=== PATIENT | female | born 1955 | race Caucasian/White ===

== ENCOUNTER 2016-12-24 08:24 | Day surgery (SDC) | payer OTHER ==
[2016-12-19 13:04] VITALS: BMI 25.0
[2016-12-24] MEDS ORDERED: PROPOFOL 20 ML ONE ×3 (10:12)
[2016-12-24] MEDS ORDERED: SUCCINYLCHOLINE CHLORIDE 200 MG/10 ML VIAL ONE (10:13)
[2016-12-24] MEDS ORDERED: ePHEDrine SULFATE 50 MG/1 ML AMPULE ONE (10:13)
[2016-12-24] MEDS ORDERED: MIDAZOLAM HCL 2 MG/2 ML SINGLE DOSE VIAL ONE ×3 (10:28→11:06)
[2016-12-24] MEDS ORDERED: ROPIVACAINE HCL 0.5% 30ML VIAL ONE (10:29)
[2016-12-24] MEDS ORDERED: KETAMINE HCL 200 MG/20 ML VIAL ONE (11:06)
[2016-12-24] MEDS ORDERED: DESFLURANE GAS 240 ML BOTTLE IH ONE (12:33)
[2016-12-24] MEDS ORDERED: HYDROmorphone HCL/PF 1 MG/ML VIAL (FOR PYXIS CHARGING ONLY) ONE (12:51)
[2016-12-24] MEDS ORDERED: oxyCODONE HCL 5 MG TABLET PO PRN ×2 (13:14)
[2016-12-24] MEDS ORDERED: KETOROLAC TROMETHAMINE 30 MG/1 ML VIAL IM ONE (13:14)
[2016-12-24] MEDS ORDERED: ONDANSETRON 4 MG/2 ML VIAL IVPUSH PRN (13:14)
[2016-12-24] MEDS ORDERED: LACTATED RINGERS SOLUTION 1,000 ML IV SCH (15:00)
[2016-12-24 16:34] VITALS: TEMP 98.5
[2016-12-24 17:09] VITALS: BP 126/72; PULSE 75
--- NOTE | 2016-12-25 11:23 | OP ---
DATE OF OPERATION: 12/24/2016 SURGEON: Wily Walter MD COMPOUND FILLER: Adryan Trevino, whose skilled surgical assistance was necessary for the retraction and protection of vital structures and for the handling and implementation of precise and delicate surgical instrumentation as well as the overall safe conveyance of the procedure. ANESTHESIOLOGIST: Mustapha Jasso MD TYPE OF ANESTHESIA: Femoral nerve block with LMA general. PREOPERATIVE DIAGNOSIS: Displaced compression fracture of the inferior pole of the patella approximately 4 weeks out of her injury. POSTOPERATIVE DIAGNOSIS: Displaced compression fracture of the inferior pole of the patella approximately 4 weeks out of her injury. PROCEDURE: Open reduction internal fixation of patellar fracture. BLOOD LOSS: Minimal. TOURNIQUET: Applied to the leg but not used during the procedure. MEDICATION: Kefzol was given preoperatively for prophylaxis against infection. At the conclusion of the procedure, a mixture of Toradol, morphine, and bupivacaine were instilled into the knee for additional analgesia. HARDWARE: For fixation, two No. 2 FiberTapes. COMPLICATIONS: None. INDICATIONS: The patient is a 61-year-old female with a past medical history significant for hypertension for which she takes medication as well as heavy smoking history who slipped and fell approximately 1 month ago and sustained a patella fracture. She was seen in the emergency room and recommend seeing an orthopedist. She saw an orthopedist who told her that she needed to have surgery, but he could not fit her into his surgical schedule for at least 3 weeks. She then said she had difficulty finding an orthopedist who accepts her insurance. She was see in my office last week, and we reviewed treatment options. I explained that the fracture now is a month out that there is some interval healing. We rechecked x-rays again showing marked displacement of the fracture fragments. I explained treatment options both operative and nonoperative treatment. Surgery was recommended; however, she was explained that this is not simply a repair but may be a reconstruction or a revision, and because of the fact that her fracture body has already attempted at healing that there is probably interpositional scar tissue and we may need to do extensive measures to get the fragments back and try our best to restore her normal anatomy, but it is very likely she will have significant stiffness and may require additional surgery. In fact, at the time of this procedure may require allograft to try and restore the integrity of her extensor mechanism. The patient understands this. She understands the risks involves with surgery, which were explained to include, but not be limited to, nonunion, chance the fracture may not heal, chance that she could have hardware in the knee that may need to be removed at some point in the future, chance that she could have significant stiffness and loss of range of motion permanently, chance she may have developed a so called regional pain syndrome with chronic pain of her leg, chance that she could have a permanent neurologic injury leaving her with permanent loss of use of function in the leg, chance that she could have a blood clot that could spread from her legs to her lungs and could even cause , and this could occur despite DVT prophylaxis, chance that the skin may not heal, and she may need additional surgeries including plastic surgery and flap coverage to get the area to heal. The patient understands this. Again, this was reviewed with her son today and her friend who was seen at the bedside. The patient understands this. We have gone over this in detail in the office. We, again, reviewed it again. She would like to proceed with surgery. We discussed which side. She had identified the right leg as the operative site, which I signed. Today on the physical exam there is minimal swelling around the leg. There is marked displacement of at least 5 cm palpably between the fracture fragments. There is no erythema. Skin is in good condition. The operative site was confirmed with the operating room staff, and she wishes to proceed with the plan. DESCRIPTION OF PROCEDURE: After administration of a regional anesthetic by the anesthesiologist, the patient was brought into the operating room where general LMA general anesthetic was administered by the anesthesiologist. Tourniquet was placed high on the right leg but was not inflated during the procedure. The right leg was then prepped and draped in the usual sterile manner. Standard midline incision was made. Incision was approximately 12 cm in length. The incision was centered over the fracture site. Incision was carried down to the subcutaneous tissues using electrocautery device to maintain hemostasis. Fracture site was visualized. There was approximately 5 cm of gapping between the fracture fragments. The inferior pole fragment was mostly intra-articular and was 3 small pieces and essentially 2 smaller pieces laterally still attached to the patellar tendon. The vast majority of the patella itself, which was visualized proximally dissection to free up the adherences of the patient's quadriceps and vastus musculature to allow mobilization of the patella back down to the inferior pole were performed. Modified Krackow stitches were placed in the patella tendon, and then we drilled through the bony fragments themselves creating 2 pairs of suture at the inferior pole being somewhat reinforced by soft tissue of the patella tendon. These sutures were then passed and drilled through the patella tendon and the patella was then restored to its near anatomic position with good bony abutment of the fracture fragments. These were then tied. Permanent fluoroscopic image intensification revealed adequate position of the inferior pole to the reigning body of the patella. The repair was further strengthened with interrupted [id number] No. 1 Vicryl sutures around the knee joint itself after thorough irrigation of the knee joint compartment with copious amounts of antibiotic normal saline solution. The subcutaneous tissue was then irrigated with copious amounts of antibiotic normal saline solution. A mixture of the aforementioned local was instilled into the knee itself. The subcutaneous tissues were closed with 0 and 2-0 Vicryl sutures for the deeper tissues and undyed 2-0 Vicryl sutures for the dermis. The wound was then further closed with johnathan, dressed with bacitracin, Adaptic, 4x4 gauze held in place with loosely applied sterile Webril. A well-padded long-leg cylinder cast was then applied on the patient's leg with her knee in full extension. She was then awaken and transported to the recovery room in stable condition having tolerated the procedure well without any incidence postoperatively. We plan on leaving the patient in the cast 6-8 weeks to give the fracture the best chance to heal. We explained to the patient and she has acknowledged that she is going to have some significant stiffness from this. At that point, we will place her into a knee immobilizer and begin protected range of motion and strengthening exercises after the fracture shows signs of healing. She is going to use a full-strength aspirin daily as well as early ambulation for DVT prophylaxis. She is going to live with her sister for now as she has a 3-story walk up, and she is going to be residing at her sister's house as she feels it is safer. Her son also said that he would be able to help take care of her. She understands not to get the cast wet, not to stick anything under the cast. She is going to follow up with us in the office in 10 days. At that point, we are going to window the cast the examine the wound. She was explained that should she have any increasing pain fevers, chills, foul odor, any problem whatsoever, she is to come back to our office immediately or go to the emergency room immediately. WILY WALTER M.D. [id number]
== END 2016-12-24 16:25 | disposition home or self-care (01) ==
LOC: FASU 08:24
PROVIDERS: ATTEND Orthopaedic Surgery
PROC: 0QSD04Z Reposition Right Patella with Internal Fixation Device, Open Approach (ICD-10-PCS; principal; 2016-12-24 11:44)
DX: S82.031A Displaced transverse fracture of right patella, initial encounter for closed fracture (principal); I10 Essential (primary) hypertension; F17.210 Nicotine dependence, cigarettes, uncomplicated; W01.0XXA Fall on same level from slipping, tripping and stumbling without subsequent striking against object, initial encounter; Y93.9 Activity, unspecified; Y92.9 Unspecified place or not applicable
CPT/HCPCS: 73560-TC-RT; 76000-TC; 94760

== ENCOUNTER 2020-05-22 09:29 | Inpatient (IN) | payer OTHER ==
[2020-05-22 10:51] VITALS: BMI 23.6
[2020-05-22] MEDS ORDERED: chlordiazePOXIDE HCL 25 MG CAPSULE PO PRN (11:20)
[2020-05-22] MEDS ORDERED: MAGNESIUM HYDROX 2400MG/30ML ORAL SUSPENSION 30 ML CUP PO PRN (11:20)
[2020-05-22] MEDS ORDERED: BISMUTH SUBSALICYLATE 262 MG/15 ML BTL PO PRN (11:20)
[2020-05-22] MEDS ORDERED: MENTHOL/PHENOL 1 EACH UD MM PRN (11:20)
[2020-05-22] MEDS ORDERED: MAGNESIUM CITRATE 300 ML BOTTLE PO PRN (11:20)
[2020-05-22] MEDS ORDERED: MAG HYDROX/AL HYDROX/SIMETH 30 ML UNIT-DOSE CUP PO PRN (11:20)
[2020-05-22] MEDS ORDERED: NICOTINE POLACRILEX 2 MG GUM BUC PRN (11:20)
[2020-05-22] MEDS ORDERED: METHOCARBAMOL 500 MG TABLET PO PRN (11:20)
[2020-05-22] MEDS ORDERED: ACETAMINOPHEN 325 MG TABLET (FP) PO PRN ×2 (11:20)
[2020-05-22] MEDS ORDERED: IBUPROFEN 400 MG TABLET (FP) PO PRN (11:20)
[2020-05-22] MEDS ORDERED: ONDANSETRON *ODT* 4 MG TABLET SL ONE (11:20)
[2020-05-22] MEDS: PRENATAL VITAMINS W/ FOLIC ACID TABLET (FP) PO SCH (12:15)
[2020-05-22] MEDS: NICOTINE 21 MG/24 HOURS TOPICAL PATCH TD SCH (12:15)
[2020-05-22] MEDS ORDERED: hydrOXYzine PAMOATE 25 MG CAPSULE (FP) PO PRN (13:32)
[2020-05-22] MEDS ORDERED: hydrOXYzine PAMOATE 25 MG CAPSULE (FP) PO SCH (14:00)
[2020-05-22] MEDS ORDERED: hydrOXYzine PAMOATE 50 MG CAPSULE (FP) PO PRN (14:01)
[2020-05-22 14:30] LABS: HEMATOCRIT 44.4 % (32.4-45.2); HEMOGLOBIN 14.8 GM/dL (10.7-15.3); MCH 29.5 pg (25.7-33.7); MCHC 33.4 g/dl (32.0-36.0); MEAN CELL VOLUME 88.4 fl (80-96); PLATELET COUNT 111 K/MM3 (134-434); RBC 5.02 M/mm3 (3.60-5.2); RDW 13.9 % (11.6-15.6); WHITE BLOOD COUNT 5.9 K/mm3 (4.0-10.0)
[2020-05-22 14:37] LABS: ALBUMIN 4.1 g/dl (3.4-5.0); BILIRUBIN,TOTAL 1.4 mg/dL (0.2-1); BLOOD UREA NITROGEN 11.7 mg/dL (7-18); CALCIUM 9.8 mg/dL (8.5-10.1); CREATININE 0.5 mg/dL (0.55-1.3); POTASSIUM 3.1 mmol/L (3.5-5.1); TOT PROT 7.6 g/dl (6.4-8.2)
[2020-05-22] MEDS: chlordiazePOXIDE HCL 25 MG CAPSULE PO SCH ×2 (17:33→22:28)
[2020-05-22] MEDS ORDERED: CALAMINE 8% TOPICAL LOTION 177 ML BOTTLE TP PRN (18:16)
[2020-05-22] MEDS ORDERED: SUVOREXANT 10 MG TABLET PO PRN (22:00)
[2020-05-22] MEDS: THIAMINE HCL 100 MG TABLET (FP) PO SCH (22:28)
[2020-05-22] MEDS: MELATONIN 5 MG TABLETS PO SCH (22:29)
[2020-05-23] MEDS: chlordiazePOXIDE HCL 25 MG CAPSULE PO SCH ×4 (06:00→22:10)
[2020-05-23] MEDS: PRENATAL VITAMINS W/ FOLIC ACID TABLET (FP) PO SCH (10:16)
[2020-05-23] MEDS: metoPROLOL SUCCINATE 25 MG TAB.SR.24H (FP) PO SCH (10:16)
[2020-05-23] MEDS: NICOTINE 21 MG/24 HOURS TOPICAL PATCH TD SCH (10:19)
[2020-05-23] MEDS: POTASSIUM CHLORIDE TABS 20 MEQ TABLET.ER (FP) PO SCH (11:57)
[2020-05-23] MEDS: THIAMINE HCL 100 MG TABLET (FP) PO SCH (22:10)
[2020-05-23] MEDS: MELATONIN 5 MG TABLETS PO SCH (22:10)
[2020-05-24] MEDS: chlordiazePOXIDE HCL 25 MG CAPSULE PO SCH ×4 (06:27→21:59)
[2020-05-24] MEDS: NICOTINE 21 MG/24 HOURS TOPICAL PATCH TD SCH (10:47)
[2020-05-24] MEDS: PRENATAL VITAMINS W/ FOLIC ACID TABLET (FP) PO SCH (10:48)
[2020-05-24] MEDS: metoPROLOL SUCCINATE 25 MG TAB.SR.24H (FP) PO SCH (10:48)
[2020-05-24] MEDS: POTASSIUM CHLORIDE TABS 20 MEQ TABLET.ER (FP) PO SCH (10:48)
[2020-05-24] MEDS: THIAMINE HCL 100 MG TABLET (FP) PO SCH (21:59)
[2020-05-24] MEDS: MELATONIN 5 MG TABLETS PO SCH (22:00)
[2020-05-25] MEDS ORDERED: chlordiazePOXIDE HCL 10 MG CAPSULE PO PRN
[2020-05-25] MEDS ORDERED: chlordiazePOXIDE HCL 10 MG CAPSULE PO SCH (05:00)
[2020-05-25 06:43] VITALS: BP 111/72; PULSE 74; TEMP 97
[2020-05-25 10:19] LABS: ALBUMIN 3.5 g/dl (3.4-5.0); BILIRUBIN,TOTAL 0.8 mg/dL (0.2-1); CALCIUM 9.7 mg/dL (8.5-10.1); CREATININE 0.5 mg/dL (0.55-1.3); POTASSIUM 4.2 mmol/L (3.5-5.1); TOT PROT 6.7 g/dl (6.4-8.2)
[2020-05-26] MEDS ORDERED: chlordiazePOXIDE HCL 10 MG CAPSULE PO SCH (05:00)
[2020-05-27] MEDS ORDERED: chlordiazePOXIDE HCL 10 MG CAPSULE PO ONE (05:00)
== END 2020-05-25 09:12 | disposition home or self-care (01) | DRG 775 ==
LOC: YASAS 09:29 → Y6N 11:22
PROVIDERS: ADMIT Allergy & Immunology; ATTEND Allergy & Immunology
PROC: HZ2ZZZZ Detoxification Services for Substance Abuse Treatment (ICD-10-PCS; principal; 2020-05-22)
DX: F10.230 Alcohol dependence with withdrawal, uncomplicated (principal); F10.280 Alcohol dependence with alcohol-induced anxiety disorder; F10.282 Alcohol dependence with alcohol-induced sleep disorder; F17.210 Nicotine dependence, cigarettes, uncomplicated; F32.9 Major depressive disorder, single episode, unspecified; I10 Essential (primary) hypertension; E87.6 Hypokalemia; L50.9 Urticaria, unspecified; Z88.0 Allergy status to penicillin; Z87.01 Personal history of pneumonia (recurrent)
CPT/HCPCS: 36415; 80053; 85027; 86780; 93005; 93010; U0003